=== PATIENT | female | born 1940 | race Caucasian/White ===

== ENCOUNTER 2023-06-13 06:49 | Outpatient (RCR) | payer OTHER, SELFPAY | END 2023-06-13 23:59 | disposition home or self-care (01) | LOC: RPT 06:49 | PROVIDERS: ATTENDING PHYSICIAN Family Medicine | DX: N39.41 Urge incontinence (principal); R39.15 Urgency of urination; Z73.6 Limitation of activities due to disability; M62.81 Muscle weakness (generalized); M62.89 Other specified disorders of muscle | CPT/HCPCS: 97162; 97530 ==

== ENCOUNTER 2023-06-29 09:48 | Outpatient (RCR) | payer OTHER, SELFPAY | END 2023-06-29 10:11 | disposition home or self-care (01) | LOC: RPT 09:48 | PROVIDERS: ATTENDING PHYSICIAN Family Medicine | DX: N39.41 Urge incontinence (principal); R39.15 Urgency of urination; Z73.6 Limitation of activities due to disability; M62.81 Muscle weakness (generalized); M62.89 Other specified disorders of muscle | CPT/HCPCS: 97530 ==

== ENCOUNTER → 2024-02-01 07:05 | Outpatient (REF) | payer OTHER, SELFPAY | LOC: RCS 07:05 | PROVIDERS: ATTENDING PHYSICIAN Physician Assistant; FAMILY PHYSICIAN Family Medicine | DX: R06.02 Shortness of breath (principal); I10 Essential (primary) hypertension; R00.1 Bradycardia, unspecified; I35.8 Other nonrheumatic aortic valve disorders; R06.09 Other forms of dyspnea | CPT/HCPCS: 93306 ==

== ENCOUNTER 2024-06-02 06:26 | Day surgery (SDC) | payer OTHER, SELFPAY | END 2024-06-02 14:10 | disposition home or self-care (01) | LOC: GI 06:26 | PROVIDERS: ATTENDING PHYSICIAN Student in an Organized Health Care Education/Training Program | DX: T18.2XXA Foreign body in stomach, initial encounter (principal); Y93.89 Activity, other specified; K22.89 Other specified disease of esophagus; R12 Heartburn; R11.10 Vomiting, unspecified | CPT/HCPCS: 43235 ==

== ENCOUNTER → 2024-06-06 12:35 | Outpatient (REF) | payer OTHER, SELFPAY | LOC: WDC 12:35 | PROVIDERS: ATTENDING PHYSICIAN Family Medicine | DX: Z12.31 Encounter for screening mammogram for malignant neoplasm of breast (principal); Z78.0 Asymptomatic menopausal state | CPT/HCPCS: 77063; 77067; 77080 ==